=== PATIENT | male | born 1955 | race Asian ===

== ENCOUNTER 2024-12-21 21:05 | Inpatient (IN) | payer OTHER ==
[~2024-12-21] VITALS: Ht 167.6 cm; Wt 65.8 kg
[2024-12-21 21:18] VITALS: O2SAT 96
[2024-12-21 22:23] LABS: BASOPHILS % 0.3 % (0.0-2.0); EOSINOPHILS % 0.1 % (0.0-5.0); HEMATOCRIT. 37.7 % (42.0-52.0); HEMOGLOBIN. 13.6 g/dL (14.0-18.0); LYMPHOCYTES % 10.6 % (20.0-50.0); MEAN PLATELET VOLUME 6.1 fl (7.4-10.4); MONOCYTES % 6.9 % (2.0-8.0); NEUTROPHILS % 82.1 % (40.0-76.0); PLATELET 244 x1000/uL (130-400); RED BLOOD CELL COUNT 4.46 mill/uL (4.7-6.1); RED CELL DISTRIBUTION WIDTH 13.7 % (11.6-14.6)
[2024-12-21 22:31] LABS: CREATININE 0.7 mg/dL (0.6-1.3); UREA NITROGEN BLOOD 14 mg/dL (9-23)
[2024-12-21 22:33] LABS: ASPARTATE AMINOTRANSFERASE 49 IU/L (<34); BILIRUBIN DIRECT 0.9 mg/dL (<=3.0); BILIRUBIN TOTAL 3.2 mg/dL (0.1-1.0); PROTEIN TOTAL 7.2 g/dL (6.0-8.3)
[2024-12-21] MEDS: ONDANSETRON HCL 4MG/2ML INJ IV ONE (23:14)
[2024-12-21] MEDS: MORPHINE SULFATE 2 MG/ML INJ (NOT FOR IM USE) IV ONE (23:14)
[2024-12-21] MEDS: SODIUM CHLORIDE 0.9% 1,000 ML IV ONE (23:15)
[2024-12-22 02:05] VITALS: BP 159/89; PULSE 89; RESP 18; TEMP 36.8; TEMP 36.8072; O2SAT 98
[2024-12-22 02:20] LABS: CLARITY URINE CLEAR (CLEAR); COLOR URINE YELLOW (YELLOW); GLUCOSE URINE 1+ (NEGATIVE); KETONES URINE 2+ (NEGATIVE); LEUKOCYTE ESTERASE URINE NEGATIVE (NEGATIVE); NITRITE URINE NEGATIVE (NEGATIVE); OCCULT BLOOD URINE NEGATIVE (NEGATIVE); PH URINE 6.5 (4.5-8.0); PROTEIN URINE 1+ (NEGATIVE); SPECIFIC GRAVITY URINE 1.018 (1.005-1.030); UROBILINOGEN URINE 1.0 E.U./dL (0.2-1.0)
[2024-12-22 02:40] LABS: BACTERIA URINE TRACE; COARSE GRANULAR CASTS URINE 0-5 /lpf; RBC URINE NONE SEEN /hpf (0-2); SQUAMOUS EPITHELIAL CELL URINE NONE SEEN /lpf (RARE/1+); WBC URINE 0-2 /hpf (0-2)
[2024-12-22] MEDS ORDERED: MAGNESIUM/ALUMINUM HYDROXIDE/SIMETHICONE 30ML UDC PO PRN (03:30)
[2024-12-22] MEDS ORDERED: HYDRALAZINE 20MG/ML VIAL IV PRN (03:30)
[2024-12-22] MEDS ORDERED: DIPHENHYDRAMINE 50MG/ML VIAL IV PRN (03:30)
[2024-12-22] MEDS ORDERED: ZOLPIDEM TARTRATE 5MG TABLET PO PRN (03:30)
[2024-12-22] MEDS ORDERED: ONDANSETRON HCL 4MG/2ML INJ IV PRN (03:30)
[2024-12-22] MEDS ORDERED: ACETAMINOPHEN 325MG TABLET PO PRN ×2 (03:30)
[2024-12-22] MEDS ORDERED: CLONIDINE 0.1MG TABLET PO PRN (03:30)
[2024-12-22] MEDS: KCL 20MEQ/100ML PREMIX 100 ML IV NR (03:57)
[2024-12-22] MEDS: SODIUM CHLORIDE 0.9% 1,000 ML IV SCH (03:58)
[2024-12-22] MEDS: MORPHINE SULFATE 2 MG/ML INJ (NOT FOR IM USE) IV PRN (03:59)
[2024-12-22 08:00] VITALS: BP 149/98; PULSE 87; RESP 12; TEMP 36.7; O2SAT 99
[2024-12-22] MEDS: PANTOPRAZOLE SODIUM 40 MG/VIAL IV SCH (08:31)
[2024-12-22] MEDS: LOSARTAN 25 MG TABLET PO SCH (08:32)
[2024-12-22] MEDS: AMLODIPINE 5MG TABLET PO SCH (08:32)
[2024-12-22] MEDS: ENOXAPARIN 40MG/0.4ML SYR SUBCUT SCH (08:33)
[2024-12-22] MEDS ORDERED: NALOXONE HCL 0.4MG/ML VIAL IV PRN (10:15)
[2024-12-22 12:00] VITALS: BP 152/85; PULSE 85; RESP 20; O2SAT 98
[2024-12-22] MEDS: FINASTERIDE 5MG TABLET PO SCH (12:43)
[2024-12-22] MEDS: TAMSULOSIN HCL 0.4MG SR CAPSULE PO SCH (12:46)
[2024-12-22 13:40] LABS: BASOPHILS % 0.3 % (0.0-2.0); EOSINOPHILS % 0.2 % (0.0-5.0); HEMATOCRIT. 37.4 % (42.0-52.0); HEMOGLOBIN. 13.2 g/dL (14.0-18.0); LYMPHOCYTES % 10.6 % (20.0-50.0); MEAN PLATELET VOLUME 6.1 fl (7.4-10.4); MONOCYTES % 5.7 % (2.0-8.0); NEUTROPHILS % 83.2 % (40.0-76.0); PLATELET 237 x1000/uL (130-400); RED BLOOD CELL COUNT 4.39 mill/uL (4.7-6.1); RED CELL DISTRIBUTION WIDTH 13.6 % (11.6-14.6)
[2024-12-22 13:48] LABS: CREATININE 0.6 mg/dL (0.6-1.3); UREA NITROGEN BLOOD 10 mg/dL (9-23)
[2024-12-22 13:50] LABS: PHOSPHORUS 1.9 mg/dL (2.5-4.9)
[2024-12-22 13:53] LABS: SODIUM URINE RANDOM 70 mEq/L
[2024-12-22 15:25] LABS: OSMOLALITY URINE 379 mOsm/kg (500-850)
[2024-12-22 16:00] VITALS: BP 152/93; PULSE 98; RESP 17; TEMP 36.9; O2SAT 97
[2024-12-22] MEDS ORDERED: POTASSIUM CHLORIDE 20MEQ TABLET SR PO SCH (18:15)
[2024-12-22] MEDS ORDERED: LORAZEPAM 1MG TABLET PO PRN (18:15)
[2024-12-22] MEDS: POTASSIUM PHOSPHATE 30 MMOL in DEXT 5% WATER 490 ML IV SCH (18:31)
[2024-12-22 20:00] VITALS: BP 118/69; PULSE 103; RESP 16; TEMP 36.5; O2SAT 97
[2024-12-22] MEDS: METOPROLOL TARTRATE 25MG TABLET PO SCH (20:27)
[2024-12-22] MEDS: MAGNESIUM 1 G PREMIX 100 ML IV SCH (20:27)
[2024-12-22] MEDS: THIAMINE HCL 100 MG in SODIUM CHLORIDE 0.9% 49 ML IV SCH (20:27)
[2024-12-23] VITALS: BP 122/74; PULSE 63; RESP 15; O2SAT 99
[2024-12-23 00:42] LABS: CREATININE 0.6 mg/dL (0.6-1.3); UREA NITROGEN BLOOD 8 mg/dL (9-23)
[2024-12-23 04:00] VITALS: BP 105/79; PULSE 62; RESP 14; TEMP 37.2; O2SAT 99
[2024-12-23] MEDS: POTASSIUM CHLORIDE 20MEQ TABLET SR PO SCH (04:47)
[2024-12-23 07:03] LABS: BASOPHILS % 0.4 % (0.0-2.0); EOSINOPHILS % 0.5 % (0.0-5.0); HEMATOCRIT. 35.1 % (42.0-52.0); HEMOGLOBIN. 12.6 g/dL (14.0-18.0); LYMPHOCYTES % 14.7 % (20.0-50.0); MEAN PLATELET VOLUME 6.2 fl (7.4-10.4); MONOCYTES % 9.5 % (2.0-8.0); NEUTROPHILS % 74.9 % (40.0-76.0); PLATELET 219 x1000/uL (130-400); RED BLOOD CELL COUNT 4.17 mill/uL (4.7-6.1); RED CELL DISTRIBUTION WIDTH 13.5 % (11.6-14.6)
[2024-12-23 07:18] VITALS: BP 140/82; PULSE 79; RESP 21
[2024-12-23 07:35] LABS: UREA NITROGEN BLOOD 9 mg/dL (9-23)
[2024-12-23 07:38] LABS: CREATININE 0.6 mg/dL (0.6-1.3)
[2024-12-23 07:39] LABS: ASPARTATE AMINOTRANSFERASE 23 IU/L (<34)
[2024-12-23 07:40] LABS: BILIRUBIN DIRECT 0.5 mg/dL (<=3.0); BILIRUBIN TOTAL 1.7 mg/dL (0.1-1.0); PHOSPHORUS 2.2 mg/dL (2.5-4.9); PROTEIN TOTAL 6.2 g/dL (6.0-8.3)
[2024-12-23 08:00] VITALS: BP 140/77; PULSE 71; RESP 11; TEMP 36.9; O2SAT 98
[2024-12-23 09:18] VITALS: PULSE 82
[2024-12-23] MEDS ORDERED: POTASSIUM PHOSPHATE 15 MMOL in DEXT 5% WATER 245 ML IV NR (11:00)
== END 2024-12-23 11:46 | disposition left against medical advice (07) | DRG 394 ==
LOC: ER 21:05 → 3WST 12-22 01:17 → EDBEDREQ 12-22 01:19 → EDBEDREQTM 12-22 01:19 → EDBEDREQSVC 12-22 01:19 → EDBEDREQDT 12-22 01:19 → ENRESERV 12-22 01:31
PROVIDERS: ADMIT Internal Medicine; ATTEND Internal Medicine
DX: K40.30 Unilateral inguinal hernia, with obstruction, without gangrene, not specified as recurrent (principal); E87.1 Hypo-osmolality and hyponatremia; E87.6 Hypokalemia; I10 Essential (primary) hypertension; E78.00 Pure hypercholesterolemia, unspecified; G89.29 Other chronic pain; N40.0 Benign prostatic hyperplasia without lower urinary tract symptoms; Z53.29 Procedure and treatment not carried out because of patient's decision for other reasons; M54.9 Dorsalgia, unspecified; Z79.899 Other long term (current) drug therapy; Z82.49 Family history of ischemic heart disease and other diseases of the circulatory system
CPT/HCPCS: 36415; 74176; 76700; 80048; 80076; 81003; 82533; 83735; 83935; 84100; 84300; 84443; 85025; 96361; 96374; 96375; 99285; A4606; J1650; J2270; J2405; J2470; J3411; J3475; J3480; J3490; J7030; J7060